=== PATIENT | female | born 1990 | race African-American/Black ===

== ENCOUNTER 2017-10-19 04:29 | Inpatient (IN) | payer OTHER ==
[~2017-10-19] VITALS: Ht 165.1 cm; Wt 60.8 kg
[~2017-10-19 04:29] MED LIST: BENADRYL25 MG PO; DESITIN DIAPER28 GM TOP; DOCUSATE SODIU100 M3 PO; FOLIC ACID1 M1 PO; HYDROMORPHONE HC2 M1 PO; ITCH RELIEF CRE28 GM TOP; LUBRIDERM DAIL177 ML TOP; LYRICA50 M1 PO; LYRICA75 M1 PO; MELATONIN5 M7 PO; METHADONE HCL5 MG PO; MIRALAX119 GM PO; MULTIVITAMINS1 EAC9 PO; PERCOCET 5-3251 EACH PO; RISPERDAL0.5 M1 PO; RISPERDAL1 M1 PO; SENNA PLUS TAB1 EACH PO; TOPROL XL50 M1 PO; VANCOMYCIN1.25 GM/21 IV
--- NOTE | 2017-10-19 05:02 | ED GENERAL ADULT ---
History of Present Illness General Chief Complaint: General Adult Stated Complaint: FEVER, PER PT SICKLE CELL CRISIS Source: patient, family, old records Exam Limitations: no limitations Vital Signs & Intake/Output Vital Signs & Intake/Output Vital Signs Date Time Temp Pulse Resp B/P B/P Pulse O2 O2 Flow FiO2 Mean Ox Delivery Rate 10/19 0726 93 18 108/67 96 Room Air 10/19 0514 98 Room Air 10/19 0454 98.6 103 18 114/71 94 Room Air Allergies Coded Allergies: morphine (Severe, HIVES 10/19/17) peanut (Severe, HIVES 10/19/17) adhesive (Intermediate, RASH 10/19/17) iodine (Intermediate, SKIN BURNING 10/19/17) meperidine (From DEMEROL) (Intermediate, HIVES 10/19/17) potassium chloride (Intermediate, HIVES 10/19/17) shellfish derived (Intermediate, HIVES 10/19/17) Uncoded Allergies: FRUIT (VOMITING 08/16/17) Reconcile Medications Cod Liver Oil/Zinc Oxide (Desitin Diaper Rash 40% Paste) 40 % PASTE..G. 1 GENA TOP BID itch . diphenhydrAMINE HCl (Benadryl) 25 MG CAP 1 CAP PO Q8P PRN SKIN ITCHING . Diphenhydramine HCl/Zinc Acet (Itch Relief Cream) 2 %-0.1 % CREAM..G. 1 GENA TOP Q6PRN PRN ITCHING . Docusate Sodium 100 MG CAPSULE 100 MG PO DAILY NEEDED PRN CONSTIPATION . Emollient Combination No.92 (Lubriderm Daily Moisture) 177 ML LOTION 1 GENA TOP TID PRN DRY SKIN . Folic Acid 1 MG TABLET 1 TAB PO DAILY SUPPLEMENT (Reported) Melatonin 5 MG TABLET 10 MG PO AT BEDTIME insomnia . Metoprolol Succ XL (Toprol Xl) 50 MG TAB 1 TAB PO DAILY HEART (Reported) Multiple Vitamin (Multivitamins) 1 EACH TABLET 1 TAB PO DAILY VITAMIN ( Reported) Oxycodone HCl/Acetaminophen (Percocet 5-325 MG Tablet) 5 MG-325 MG TABLET 1 TAB PO TID PRN PAIN . Polyethylene Glycol 3350 (Miralax) 17 GRAM/DOSE POWDER 17 GM PO DAILY PRN CONSTIPATION . Pregabalin (Lyrica) 75 MG CAPSULE 150 MG PO BID SEIZURE . Risperidone (Risperdal) 0.5 MG TABLET 1 TAB PO QAM depression . Risperidone (Risperdal) 1 MG TABLET 1 TAB PO QPM depression . Sennosides/Docusate Sodium (Senna Plus Tablet) 8.6 MG-50 MG TABLET 2 TAB PO DAILY PRN CONSTIPATION . Triage Note: TRIAGE: PATIENT TO ER FROM HOME REPORTING "FEEL LIKE SICKLE CELL CRISIS X 3 DAYS." TEARFUL THROUGHOUT TRIAGE W/ FREQUENT MOANING. PATIENT REPORTS FEVER TONIGHT OF 99.5, AFEBRILE IN TRIAGE. Triage Nurses Notes Reviewed? yes : No Patient currently breastfeeds: No HPI: Patient presents to the emergency room complaining of diffuse body sickle cell pain that started 3 days following this portion. Unable to control the pain with her medications at home. She states that she isn't running a low-grade fever for 99.5. She denies any coughing. There is no nausea or vomiting. There is no dysuria. The pain is 10 out of 10. Pain is constant. There are no aggravating or mitigating factors. Past History Travel History Traveled to [place] past 21 day No Medical History Any Pertinent Medical History? 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 No Review of Systems Review of Systems Constitutional: Reports: see HPI, chills, fever. EENTM: Reports: no symptoms. Respiratory: Reports: no symptoms. Cardiovascular: Reports: no symptoms. GI: Reports: no symptoms. Genitourinary: Reports: no symptoms. Musculoskeletal: Reports: see HPI. Skin: Reports: no symptoms. Neurological/Psychological: Reports: no symptoms. Hematologic/Endocrine: Reports: no symptoms. Immunologic/Allergic: Reports: no symptoms. All Other Systems: Reviewed and Negative Physical Exam Physical Exam General Appearance: well developed/nourished, alert, awake, moderate distress Head: atraumatic, normal appearance Eyes: Bilateral: PERRL, EOMI. Ears, Nose, Throat: normal pharynx, normal ENT inspection, hearing grossly normal Neck: normal inspection, supple, full range of motion Respiratory: normal breath sounds, chest non-tender, no respiratory distress, lungs clear Cardiovascular: regular rate/rhythm, normal peripheral pulses Gastrointestinal: normal bowel sounds, soft, non-tender Back: normal inspection, normal range of motion Extremities: normal inspection, normal capillary refill, normal range of motion, no edema Neurologic/Psych: no motor/sensory deficits, awake, alert, oriented x 3, normal mood/affect Skin: intact, normal color, warm/dry Lymphatic: no anterior cervical edgar Core Measures ACS in differential dx? No CVA/TIA Diagnosis: No Sepsis Present: No Sepsis Focused Exam Completed? No Progress Differential Diagnoses I considered the following diagnoses in my evaluation of the patient: [Sickle crisis] Plan of Care: Orders Procedure Date/time Status Regular Diet 10/19 L Active ED Holding Orders 10/19 703 Active Admit to inpatient 10/19 703 Active Vital Signs 10/19 703 Active Code Status 10/19 703 Active URINALYSIS 10/19 458 Active RETICULOCYTE COUNT 10/19 458 Complete HUMAN BETA HCG SCREEN 10/19 458 Complete COMPREHENSIVE METABOLIC PANEL 10/19 458 Complete CBC WITHOUT DIFFERENTIAL 10/19 458 Complete Current Medications Sig/Dotty Start time Last Medication Dose Stop Time Status Admin Ondansetron HCl 4 MG ONCE ONE 10/19 744 AC 10/19 (Zofran) 10/19 0646 0739 Laboratory Tests 10/19/17 0517: Anion Gap 13, Estimated GFR > 60, BUN/Creatinine Ratio 25.0, Glucose 98, Calcium 9.6, Total Bilirubin 4.0 H, AST 88 H, ALT 26, Alkaline Phosphatase 88, Total Protein 9.1 H, Albumin 5.0, Globulin 4.1, Albumin/Globulin Ratio 1.2, Total Beta HCG NEGATIVE, CBC w Diff MAN DIFF ORDERED, RBC 2.64 L, MCV 89.7, MCH 30.0, RDW 20.5 H, MPV 9.5, Gran % 57.2, Lymphocytes % 27.3, Monocytes % 10.1 H, Eosinophils % 5.3 H, Basophils % 0.1, Absolute Granulocytes 8.6 H, Segmented Neutrophils 64, Absolute Lymphocytes 4.1 H, Lymphocytes 25, Monocytes 5, Absolute Monocytes 1.5 H, Eosinophils 4, Absolute Eosinophils 0.8, Basophils 1, Absolute Basophils 0, Nucleated RBCs 1 H, Platelet Estimate ADEQUATE, Polychromasia 2+, Poikilocytosis 3+, Basophilic Stippling SLIGHT, Ovalocytes 1+, Prasanna Cells FEW, Elliptocytes 1+, Schistocytes FEW, PUBS MCHC 33.5, Retic Count 12.9 H, Fld Total RBCs Counted 100 Initial ED EKG: none Departure Departure Disposition: STILL A PATIENT Condition: Stable Clinical Impression Primary Impression: Sickle cell anemia Referrals: Patient Has No Primary Care Dr (PCP/Family) Departure Forms: Customer Survey General Discharge Information Admission Note Spoke With: Deidra Bravo MD Documentation of Exam: Documentation of any treatments & extenuating circumstances including Concerns Regarding Discharge (functional status, medication knowledge or non-compliance, living conditions, etc.) that warrant an admission rather than observation: [IV FLUIDS, IV PAIN CONTROL, HEME CONSULT] Critical Care Note Critical Care Note Critical Care Time: non-applicable
[2017-10-19 05:34] LABS: ABSOLUTE BASOPHIL COUNT 0 /CUMM (0.0-0.2); ABSOLUTE EOSINOPHIL COUNT 0.8 /CUMM (0.0-0.7); ABSOLUTE GRANULOCYTE CT 8.6 /CUMM (1.4-6.5); ABSOLUTE LYMPH COUNT 4.1 /CUMM (1.2-3.4); ABSOLUTE MONOCYTE COUNT 1.5 /CUMM (0.10-0.60); BASOPHIL % 0.1 % (0.0-2.0); EOSINOPHIL % 5.3 % (0-5); GRANULOCYTE % 57.2 % (42.2-75.2); HEMATOCRIT 23.7 % (37-47); MEAN CORPUSCULAR HGB CONC 33.5 G/DL (33.0-37.0); MEAN CORPUSCULAR VOLUME 89.7 FL (81.0-99.0); MEAN PLATELET VOLUME 9.5 FL (7.4-10.4); PLATELET COUNT 319 /CUMM (130-400); RBC DISTRIBUTION WIDTH 20.5 % (11.5-14.5); RED BLOOD CELL CT 2.64 /CUMM (4.20-5.40); WHITE BLOOD CELL COUNT 15.1 /CUMM (4.8-10.8)
--- NOTE | 2017-10-19 11:01 | RADIOLOGY REPORT ---
EXAMINATION: XR LUMBOSACRAL SPINE CLINICAL INFORMATION: Sickle cell crisis. Pain predominantly in back and vertebrae. COMPARISON: CT scan of the abdomen and pelvis 09/13/2017. MRI scan 09/11/2017. TECHNIQUE: AP and lateral views of the lumbosacral spine were obtained. FINDINGS: There is mild levoscoliosis. Bone mineralization is diffusely decreased. The study redemonstrates central depression of the superior and inferior endplates of the vertebrae in the lower thoracic and in the mid and upper lumbar spine, consistent with sequelae of sickle cell disease. There are no acute compression fractures. There are no acute compression fractures. The paravertebral structures are unremarkable. The sacroiliac joints are intact. The bowel gas pattern is nonspecific. IMPRESSION: 1. The study demonstrates central depression of multiple vertebrae and low bone mineralization, consistent sequelae of sickle cell disease. 2. There are no acute fractures or subluxations.
--- NOTE | 2017-10-19 11:35 | History & Physical ---
Juan Alberto BALDERAS,Samuel 10/19/17 0849: General Information and HPI MD Statement: I have seen and personally examined MIRIAN OBREGON and documented this H&P. The patient is a 27 year old F who presented with a patient stated chief complaint of [sickle cell crisis]. Source of Information: patient, old records Exam Limitations: no limitations History of Present Illness: This is a 26-year-old female with reported history of CHF, CVA X2 (last one in 2014) seizure disorder, Hep C w/o dx of cirrhosis, bipolar disorder and sickle cell crises who comes in with CC of back pain. Pt states that pain has been severe for the past few days but she states that her symptoms started about 1.5 weeks ago. She describes pain as 10/10, burning sensation that is in her spine and r.sided flank and it radites down her buttocks to both lower extremeties. Additionally, she is experiencing severe pruritis that is associated with pain medication. Pt states that the cold weather makes her symptoms worse. She has hx of exchange transfusions and trt with hydroxyurea but is not on either at this time. She was seen at [place] 09/2017 for crisis and was found to also have MRSA bacteremia 2/2 to port. During time of DC she was told to F/U with Dr.John Em at the [facility], but pt was unable to make her appointment. She denies IVDA, and recent EtOH but does did smoke marijuana yesterday. She endorses headache, nausea, severe pruritis, back pain, generalized abdominal pain but denies chest pain, or SOB. Allergies/Medications Allergies: Coded Allergies: morphine (Severe, HIVES 10/19/17) peanut (Severe, HIVES 10/19/17) adhesive (Intermediate, RASH 10/19/17) iodine (Intermediate, SKIN BURNING 10/19/17) meperidine (From DEMEROL) (Intermediate, HIVES 10/19/17) potassium chloride (Intermediate, HIVES 10/19/17) shellfish derived (Intermediate, HIVES 10/19/17) Uncoded Allergies: FRUIT (VOMITING 08/16/17) Home Med list Cod Liver Oil/Zinc Oxide (Desitin Diaper Rash 40% Paste) 40 % PASTE..G. 1 GENA TOP BID itch . diphenhydrAMINE HCl (Benadryl) 25 MG CAP 1 CAP PO Q8P PRN SKIN ITCHING . Diphenhydramine HCl/Zinc Acet (Itch Relief Cream) 2 %-0.1 % CREAM..G. 1 GENA TOP Q6PRN PRN ITCHING . Docusate Sodium 100 MG CAPSULE 100 MG PO DAILY NEEDED PRN CONSTIPATION . Emollient Combination No.92 (Lubriderm Daily Moisture) 177 ML LOTION 1 GENA TOP TID PRN DRY SKIN . Folic Acid 1 MG TABLET 1 TAB PO DAILY SUPPLEMENT (Reported) Melatonin 5 MG TABLET 10 MG PO AT BEDTIME insomnia . Metoprolol Succ XL (Toprol Xl) 50 MG TAB 1 TAB PO DAILY HEART (Reported) Multiple Vitamin (Multivitamins) 1 EACH TABLET 1 TAB PO DAILY VITAMIN ( Reported) Oxycodone HCl/Acetaminophen (Percocet 5-325 MG Tablet) 5 MG-325 MG TABLET 1 TAB PO TID PRN PAIN . Polyethylene Glycol 3350 (Miralax) 17 GRAM/DOSE POWDER 17 GM PO DAILY PRN CONSTIPATION . Pregabalin (Lyrica) 75 MG CAPSULE 150 MG PO BID SEIZURE . Risperidone (Risperdal) 0.5 MG TABLET 1 TAB PO QAM depression . Risperidone (Risperdal) 1 MG TABLET 1 TAB PO QPM depression . Sennosides/Docusate Sodium (Senna Plus Tablet) 8.6 MG-50 MG TABLET 2 TAB PO DAILY PRN CONSTIPATION . 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 Ambulation: independent Review of Systems Review of Systems Constitutional: Reports: no symptoms. Exam & Diagnostic Data Last 24 Hrs of Vital Signs/I&O Vital Signs Date Time Temp Pulse Resp B/P B/P Pulse O2 O2 Flow FiO2 Mean Ox Delivery Rate 10/19 946 85 18 106/66 10/19 0726 93 18 108/67 96 Room Air 10/19 0514 98 Room Air 10/19 0454 98.6 103 18 114/71 94 Room Air Intake & Output 10/19 1600 10/19 0800 10/19 0000 Intake Total Output Total Balance Patient 60.781 kg Weight Weight Reported by Patient Measurement Method Physical Exam General Appearance Alert, Oriented X3, Cooperative, Moderate Distress Skin excorications in abd and arms and legs HEENT Atraumatic, PERRLA, EOMI, Mucous Membr. moist/pink Neck Supple Cardiovascular tachycardic, soft 2/6 RUSB systolic murmur Lungs Clear to Auscultation, Normal Air Movement Abdomen Soft, No Masses Neurological Normal Speech Last 24 Hrs of Labs/Lamin: Laboratory Tests 10/19/17 1008: Urine Color YEL, Urine Clarity HAZY H, Urine pH 6.0, Ur Specific Mozier 1.020, Urine Protein NEG, Urine Ketones NEG, Urine Nitrite NEG, Urine Bilirubin POS@ ICTO H, Urine Urobilinogen 0.2, Ur Leukocyte Esterase SMALL H, Ur Microscopic SEDIMENT EXAMINED, Urine RBC RARE, Urine WBC 1-3 H, Ur Epithelial Cells FEW, Urine Bacteria MOD H, Micro UA Comment , Urine Hemoglobin TRACE-INTACT, Urine Glucose NEG 10/19/17 0517: Anion Gap 13, Estimated GFR > 60, BUN/Creatinine Ratio 25.0, Glucose 98, Calcium 9.6, Total Bilirubin 4.0 H, AST 88 H, ALT 26, Alkaline Phosphatase 88, Total Protein 9.1 H, Albumin 5.0, Globulin 4.1, Albumin/Globulin Ratio 1.2, Total Beta HCG NEGATIVE, D-Dimer High Sensitivty 1996 H, CBC w Diff MAN DIFF ORDERED, RBC 2.64 L, MCV 89.7, MCH 30.0, RDW 20.5 H, MPV 9.5, Gran % 57.2, Lymphocytes % 27.3, Monocytes % 10.1 H, Eosinophils % 5.3 H, Basophils % 0.1, Absolute Granulocytes 8.6 H, Segmented Neutrophils 64, Absolute Lymphocytes 4.1 H, Lymphocytes 25, Monocytes 5, Absolute Monocytes 1.5 H, Eosinophils 4, Absolute Eosinophils 0.8, Basophils 1, Absolute Basophils 0, Nucleated RBCs 1 H, Platelet Estimate ADEQUATE, Polychromasia 2+, Poikilocytosis 3+, Basophilic Stippling SLIGHT, Ovalocytes 1+, [place] Cells FEW, Elliptocytes 1+, Schistocytes FEW, PUBS MCHC 33.5, Retic Count 12.9 H, Fld Total RBCs Counted 100 Microbiology 10/19 1008 URINE ROUT: Urine Culture - RECD Assessment/Plan Assessment: This is a 26-year-old female with reported history of CHF, CVA X2 (last one in 2014) seizure disorder, Hep C w/o dx of cirrhosis, bipolar disorder and sickle cell crises who comes in with CC of back pain and sickle cell crisis. ED work up shows: Vitals: 98.6, 103, 18, 114/77, 94% CBC: wbc 15.1, HB 7.9, HCT 23.7, PLT 319. Retic 12.9 T. OLAF 4.0, ast 88, alt 26, ALKP 88, Negative HCG Anemia and back pain likely due to sickle cell crisis: Pt had prolonged admission to 09/2017 for similar complaint and found to have MRSA bacteremia. She denies any chest pain or SOB at this time. Pt has complex course of Sickle Cell disease as she has hx of chronic exchange transfusion, likely iron-load contributing to heart failure, and previous trt with Hydroxyurea. Currently not following with heme/onc specialist or Sickle cell specialist. In Sep she left with Hb 7.4 today at 7.9. Retic count 12.9 and T. olaf 4.0. * IVF-no 1/2 NS in hospital so giving NS at 75cc * O2 * Analgesia with Percocet and IV dilaudid * Benadryl PO 50mg q6 for pruritis * EKG * Spine xray * Folic acid * Multivitamin * Type and cross * Will hold off transfusion at this time as she seems to be around her baseline * Monitor LDH/BILI/RETIC * Heme/onc consult * Though anemic will con't pharmacologic ppx given her hypercoag state Leukocytosis: Unsure if this is reactive or not. Pt did seem to have some r.sided flank pain but no dysuria. During previous hospitalization she had MRSA bacteremia which was treated. Also had enlarged LN which was treated with Doxy. No obvious source of infection at this time. * Monitor cbc * UA * UC * hold off abx at this time Seizures: * Continue Lyrica 150mg BID CHF: * Con't Toprol XL 50mg Bipolar: * Con't Risperdal per home dosing Transamanitis: She does have mild AST elevation of 88 but nml ALT 26. Alk phos 88. During previous admission she was eval for possible gallbladder etiology of elevation of LFT and did have delayed HIDA. At that time thought to be 2/2 narcotics or chronic cholecystitis. Note pt also has hx of Hep C. * Monitor LFT * Consider US RUQ if enzymes elevate or pt has RUQ pain. FC Heart healthy diet Chem dvt ppx As Ranked By This Provider Problem List: 1. Anemia 2. Sickle cell crisis 3. 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
[2017-10-19 14:42] VITALS: BP 126/80
[2017-10-19 22:20] VITALS: BP 100/60
[2017-10-20 06:26] VITALS: BP 106/64
--- NOTE | 2017-10-20 07:37 | Cons- Hematology ---
General Information and HPI Consulting Request Date of Consult: 10/20/17 Requested By: Deidra Bravo MD Reason for Consult: sickle cell crisis Source of Information: patient, old records Exam Limitations: no limitations History of Present Illness: Ms. Rooney is a 27-year-old female with reported history of CHF, CVA (last in 2014), seizure disorder, bipolar disorder, hepatitis C, and sickle cell disease who presents with a few weeks history of back pain which has progressed to generalized pain. Pain has been worse with the cold weather. She states she has been trying to deal with it at home. She reports some low grade fever. She has some mild shortness of breath with exertion. She denies any coughing. She has some diarrhea. She denies any urinary issue. She states there was pus coming out of her left chest port incision area at one time. It is resolved now. She was to follow up with Dr. Em at [facility] but was never able to make it. She got sick when the appointment came up again. Allergies/Medications Allergies: Coded Allergies: morphine (Severe, HIVES 10/19/17) peanut (Severe, HIVES 10/19/17) adhesive (Intermediate, RASH 10/19/17) iodine (Intermediate, SKIN BURNING 10/19/17) meperidine (From DEMEROL) (Intermediate, HIVES 10/19/17) potassium chloride (Intermediate, HIVES 10/19/17) shellfish derived (Intermediate, HIVES 10/19/17) Uncoded Allergies: FRUIT (VOMITING 08/16/17) Home Med List: Cod Liver Oil/Zinc Oxide (Desitin Diaper Rash 40% Paste) 40 % PASTE..G. 1 GENA TOP BID itch . diphenhydrAMINE HCl (Benadryl) 25 MG CAP 1 CAP PO Q8P PRN SKIN ITCHING . Diphenhydramine HCl/Zinc Acet (Itch Relief Cream) 2 %-0.1 % CREAM..G. 1 GENA TOP Q6PRN PRN ITCHING . Docusate Sodium 100 MG CAPSULE 100 MG PO DAILY NEEDED PRN CONSTIPATION . Emollient Combination No.92 (Lubriderm Daily Moisture) 177 ML LOTION 1 GENA TOP TID PRN DRY SKIN . Folic Acid 1 MG TABLET 1 TAB PO DAILY SUPPLEMENT (Reported) Melatonin 5 MG TABLET 10 MG PO AT BEDTIME insomnia . Metoprolol Succ XL (Toprol Xl) 50 MG TAB 1 TAB PO DAILY HEART (Reported) Multiple Vitamin (Multivitamins) 1 EACH TABLET 1 TAB PO DAILY VITAMIN ( Reported) Oxycodone HCl/Acetaminophen (Percocet 5-325 MG Tablet) 5 MG-325 MG TABLET 1 TAB PO TID PRN PAIN . Polyethylene Glycol 3350 (Miralax) 17 GRAM/DOSE POWDER 17 GM PO DAILY PRN CONSTIPATION . Pregabalin (Lyrica) 75 MG CAPSULE 150 MG PO BID SEIZURE . Risperidone (Risperdal) 0.5 MG TABLET 1 TAB PO QAM depression . Risperidone (Risperdal) 1 MG TABLET 1 TAB PO QPM depression . Sennosides/Docusate Sodium (Senna Plus Tablet) 8.6 MG-50 MG TABLET 2 TAB PO DAILY PRN CONSTIPATION . Current Medications: Current Medications Sig/Dotty Start time Last Medication Dose Route Stop Time Status Admin Acetaminophen 650 MG Q6P PRN 10/19 944 AC PO Diphenhydramine HCl 50 MG .STK-MED ONE 10/19 1758 DC PO 10/19 1759 Diphenhydramine HCl 0 .STK-MED ONE 10/19 1158 DC PO Diphenhydramine HCl See Dose Q12 10/19 1000 AC 10/19 Insts (1) TOP 2257 Diphenhydramine HCl 50 MG Q6P PRN 10/19 944 AC 10/20 PO 0122 Diphenhydramine HCl 0 .STK-MED ONE 10/19 0720 DC .ROUTE Enoxaparin Sodium 40 MG DAILY 10/19 1000 AC 10/19 SC 0951 Folic Acid 1 MG DAILY 10/19 1000 AC 10/19 PO 0944 Folic Acid 0 .STK-MED ONE 10/19 0859 DC PO Hydromorphone HCl 1 MG ONCE ONE 10/19 1999 DC 10/19 IV 10/19 Hydromorphone HCl 0 .STK-MED ONE 10/19 951 DC .ROUTE Hydromorphone HCl 1 MG Q6P PRN 10/19 0845 AC 10/20 IV 012 Hydromorphone HCl 0 .STK-MED ONE 10/19 720 DC .ROUTE Melatonin 10 MG AT BEDTIME 10/190 AC 10/19 PO 2013 Metoprolol Succinate 50 MG DAILY 10/19 1000 AC 10/19 PO 0947 Multivitamins 1 TAB DAILY 10/19 1000 AC 10/19 Therapeutic PO 0946 Ondansetron HCl 0 .STK-MED ONE 10/19 1158 DC .ROUTE Ondansetron HCl 4 MG Q6P PRN 10/19 0845 AC 10/19 IV 1158 Ondansetron HCl 4 MG ONCE ONE 10/19 0745 DC 10/19 IV 10/19 0746 0739 Ondansetron HCl 0 .STK-MED ONE 10/19 0739 DC .ROUTE Oxycodone/ 1 TAB Q6P PRN 10/19 0845 AC 10/20 Acetaminophen PO 0402 Polyethylene Glycol 17 GM DAILY NEEDED PRN 10/19 0830 AC PO Pregabalin 150 MG BID 10/19 1000 AC 10/19 PO 2014 Pregabalin 0 .STK-MED ONE 10/19 0945 DC PO Risperidone 1 MG QPM 10/19 2200 AC 10/19 PO 2013 Risperidone 0.5 MG QAM 10/19 1000 AC 10/19 PO 0945 Senna/Docusate Sodium 2 TAB DAILY NEEDED PRN 10/19 0730 AC PO Sodium Chloride 1,000 ML Q13H 10/19 1000 AC 10/20 IV 10/20 1159 0358 Tetanus/Diphtheria 0 .STK-MED ONE 10/19 1439 DC Toxoids Adsorbed IM Dose Instructions: (1)Diphenhydramine HCl: APPLY Review of Systems Review of Systems Constitutional: Reports: fever. Denies: chills, malaise, weakness, unexplained weight loss. Cardiovascular: Reports: chest pain, palpitations. Denies: edema, peripheral edema. Respiratory: Reports: short of breath. Denies: cough. GI: Reports: abdominal pain, diarrhea, nausea. Denies: bloody stool, vomiting. Genitourinary: Denies: discharge, dysuria, frequency, hematuria, pain. Musculoskeletal: Reports: back pain, joint pain, muscle pain, neck pain. Skin: Reports: dryness, lumps (left chest port area). Neurological/Psychological: Reports: anxiety, depressed. Hematologic/Endocrine: Denies: bleeding. 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 Ambulation: independent Exam & Diagnostic Data Vital Signs and I&O Vital Signs Date Time Temp Pulse Resp B/P B/P Pulse O2 O2 Flow FiO2 Mean Ox Delivery Rate 10/20 06 99.2 101 20 106/64 92 Room Air 10/19 2220 99.2 94 18 100/60 100 10/19 1442 98.1 79 18 126/80 100 Room Air 10/19 1329 80 18 100/58 97 Room Air 10/19 0947 85 18 106/66 10/19 0726 93 18 108/67 96 Room Air Intake & Output 10/20 0800 10/20 0000 10/19 1600 Intake Total 840 565 Output Total 1000 240 Balance -160 325 Intake, IV 600 225 Intake, Oral 240 340 Output, Urine 1000 240 Patient 60.781 kg Weight Weight Reported by Patient Measurement Method Physical Exam General Appearance: no apparent distress, alert, awake, anxious, comfortable, thin Head: atraumatic Eyes: Bilateral: PERRL, EOMI. Ears, Nose, Throat: normal pharynx, moist mucus membranes Neck: supple Respiratory: chest non-tender, no respiratory distress, quiet respiration Cardiovascular: tachycardia Gastrointestinal: normal bowel sounds, soft, non-tender Extremities: no edema Neurologic/Psych: awake, alert, oriented x 3 Skin: normal color, warm/dry, left anterior chest port incision with firmness and nontender Lymphatic: no anterior cervical edgar Last 48 Hours of Lab Results: Laboratory Tests 10/19 10/19 1008 0517 Chemistry Sodium (137 - 145 mmol/L) 141 Potassium (3.5 - 5.1 mmol/L) 5.0 Chloride (98 - 107 mmol/L) 107 Carbon Dioxide (22 - 30 mmol/L) 21 L Anion Gap (5 - 16) 13 BUN (7 - 17 mg/dL) 10 Creatinine (0.5 - 1.0 mg/dL) 0.4 L Estimated GFR (>60 ml/min) > 60 BUN/Creatinine Ratio (7 - 25 %) 25.0 Glucose (65 - 99 mg/dL) 98 Calcium (8.4 - 10.2 mg/dL) 9.6 Total Bilirubin (0.2 - 1.3 mg/dL) 4.0 H AST (14 - 36 U/L) 88 H ALT (9 - 52 U/L) 26 Alkaline Phosphatase (<127 U/L) 88 Total Protein (6.3 - 8.2 g/dL) 9.1 H Albumin (3.5 - 5.0 g/dL) 5.0 Globulin (1.9 - 4.2 gm/dL) 4.1 Albumin/Globulin Ratio (1.1 - 2.2 %) 1.2 Total Beta HCG (NEGATIVE) NEGATIVE Coagulation D-Dimer High Sensitivty (0 - 243 ng/ml) 1996 H Hematology CBC w Diff MAN DIFF ORDERED WBC (4.8 - 10.8 /CUMM) 15.1 H RBC (4.20 - 5.40 /CUMM) 2.64 L Hgb (12.0 - 16.0 G/DL) 7.9 L Hct (37 - 47 %) 23.7 L MCV (81.0 - 99.0 FL) 89.7 MCH (27.0 - 31.0 PG) 30.0 RDW (11.5 - 14.5 %) 20.5 H Plt Count (130 - 400 /CUMM) 319 MPV (7.4 - 10.4 FL) 9.5 Gran % (42.2 - 75.2 %) 57.2 Lymphocytes % (20.5 - 51.1 %) 27.3 Monocytes % (1.7 - 9.3 %) 10.1 H Eosinophils % (0 - 5 %) 5.3 H Basophils % (0.0 - 2.0 %) 0.1 Absolute Granulocytes (1.4 - 6.5 /CUMM) 8.6 H Segmented Neutrophils (42.2 - 75.2 %) 64 Absolute Lymphocytes (1.2 - 3.4 /CUMM) 4.1 H Lymphocytes (20.5 - 51.1 %) 25 Monocytes (1.7 - 9.3 %) 5 Absolute Monocytes (0.10 - 0.60 /CUMM) 1.5 H Eosinophils (0 - 5.0 %) 4 Absolute Eosinophils (0.0 - 0.7 /CUMM) 0.8 Basophils (0.0 - 2.0 %) 1 Absolute Basophils (0.0 - 0.2 /CUMM) 0 Nucleated RBCs (0.0 - 0.0 /100WBC) 1 H Platelet Estimate (ADEQUATE) ADEQUATE Polychromasia 2+ Poikilocytosis 3+ Basophilic Stippling SLIGHT Ovalocytes 1+ Berwind Cells FEW Elliptocytes 1+ Schistocytes FEW PUBS MCHC (33.0 - 37.0 G/DL) 33.5 Retic Count (0.5 - 2.0 %) 12.9 H Other Body Source Fld Total RBCs Counted (%) 100 Urines Urine Color (YEL,AMB,STR) YEL Urine Clarity (CLEAR) HAZY H Urine pH (5.0 - 8.0) 6.0 Ur Specific [place] (1.001 - 1.035) 1.020 Urine Protein (NEG,<30 MG/DL) NEG Urine Ketones (NEG) NEG Urine Nitrite (NEG) NEG Urine Bilirubin (NEG) POS@ICTO H Urine Urobilinogen (0.1 - 1.0 EU/dl) 0.2 Ur Leukocyte Esterase (NEG) SMALL H Ur Microscopic SEDIMENT EXAMINED Urine RBC (0 - 5 /HPF) RARE Urine WBC (0 - 2 /HPF) 1-3 H Ur Epithelial Cells (NONE,FEW) FEW Urine Bacteria (NEG/NONE) MOD H Micro UA Comment Urine Hemoglobin (NEG) TRACE-INTACT Urine Glucose (N MG/DL) NEG Imaging/Other Studies: X-ray lumbar 10/19/2016 1. The study demonstrates central depression of multiple vertebrae and low bone mineralization, consistent sequelae of sickle cell disease. 2. There are no acute fractures or subluxations. Assessment/Plan Assessment: Ms. Rooney is a 27-year-old female with sickle cell disease complicated by CHF and CVA, bipolar disorder, hepatitis C infection, and seizure disorder who presented with generalized pain concerning for sickle cell crisis. On presentation, her hemoglobin and hematocrit were 7.9 and 23.7 respectively. These are at baseline. Her WBC was elevated at 15.1 but improved from previous. Her reticulocyte count was elevated at 12.9. Bilirubin was elevated at 4.0. These suggest on going sickle cell crisis. She should be managed symptomatically with hydration and pain control. Infection should be ruled out. Her urine did show some moderate bacteria. Urine culture is pending. She has no significant respiratory issue. She is saturating at 100% on room air at times. The chest port incision area looks well healed and without signs or symptoms of infection at the moment. Recommendations: Sickle cell crisis: -Continue IVF -Pain management as per primary -Incentive spirometry -Folic acid daily -Limit transfusion, consider transfusion if hgb <6.5 (below baseline) -Transfusion if symptomatic -Monitor CBC, LFT, LDH, Retic count -DVT prophylaxis -supplemental oxygen as needed -Need to follow up as outpatient with the [facility] (Dr. 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 Sickle cell anemia 2. Sickle cell crisis Other Findings/Comments: Please call [phone] with any questions or concerns. Consult Acknowledgment - Thank you for your consult request.
--- NOTE | 2017-10-20 08:18 | Patient Discharge Instructions ---
Discharge Instructions General Discharge Information You were seen/treated for: #Sickle Cell crisis Special Instructions: - Please follow up with the [facility] (Dr. Em) to consider superintendent terminal management: hydroxyurea and exchange transfusion. - Please follow up with your primary care physician within 1-2 week of discharge. Inform your primary care physician of this admission to [facility]. - Continue your current medications per discharge instructions. - Please watch for these problems: Fever, Chills, Nausea, Vomiting, Shortness of Breath, Productive Cough, Chest Pain/Discomfort, Abdominal Pain, Active Bleeding or Bloody urine/stool. Diet Continue normal diet: Yes Recommended Diet: Heart Healthy Activity Full Activity/No Limits: Yes Activity Self Limited: No Acute Coronary Syndrome Inclusion Criteria At DC or during hospital stay patient has or had the following: ACS DIAGNOSIS No Discharge Core Measures Meds if any: Prescribed or Continued at Discharge Meds if any: NOT Prescribed or Continued at Discharge Congestive Heart Failure Inclusion Criteria At DC or during hospital stay patient has or had the following: CHF DIAGNOSIS No Discharge Core Measures Meds if any: Prescribed or Continued at Discharge Meds if any: NOT Prescribed or Continued at Discharge Cerebrovascular accident Inclusion Criteria At DC or during hospital stay patient has or had the following: CVA/TIA Diagnosis No Discharge Core Measures Meds if any: Prescribed or Continued at Discharge Meds if any: NOT Prescribed or Continued at Discharge Venous thromboembolism Inclusion Criteria VTE Diagnosis No VTE Type NONE VTE Confirmed by (Test) NONE Discharge Core Measures - Per Current guidelines, there needs to be overlap - treatment for the first 5 days of Warfarin therapy. - If discharged on Warfarin prior to 5 days of - overlap therapy, the patient will need to be - assessed for post discharge needs including - *Post discharge parental anticoagulation - *Warfarin and/or parental anticoagulation education - *Follow up date to check INR post discharge At least 5 days overlap therapy as Inpatient No Meds if any: Prescribed or Continued at Discharge Note: Overlap Therapy is Warfarin and Anticoagulant Meds if any: NOT Prescribed or Continued at Discharge
--- NOTE | 2017-10-20 08:26 | PN- Housestaff ---
Livia Graham Nabeel Prosper 10/20/17 0819: Subjective Follow-up For: Sickle cell crisis Subjective: No overnight event. Patient was crying and requesting pain meds. Review of Systems Constitutional: Reports: see HPI. Objective Last 24 Hrs of Vital Signs/I&O Vital Signs Date Time Temp Pulse Resp B/P B/P Pulse O2 O2 Flow FiO2 Mean Ox Delivery Rate 10/20 0626 99.2 101 20 106/64 92 Room Air 10/19 2220 99.2 94 18 100/60 100 10/19 1442 98.1 79 18 126/80 100 Room Air 10/19 1329 80 18 100/58 97 Room Air 10/19 0947 85 18 106/66 Intake & Output 10/20 1600 10/20 0800 10/20 0000 Intake Total 840 565 Output Total 1000 240 Balance -160 325 Intake, IV 600 225 Intake, Oral 240 340 Output, Urine 1000 240 Physical Exam General Appearance: Alert, Oriented X3, Cooperative, Crying because of pain Current Medications: Current Medications Sig/Dotty Start time Last Medication Dose Route Stop Time Status Admin Acetaminophen 650 MG Q6P PRN 10/19 944 AC PO Diphenhydramine HCl 50 MG .STK-MED ONE 10/19 1758 DC PO 10/19 1759 Diphenhydramine HCl 0 .STK-MED ONE 10/19 1158 DC PO Diphenhydramine HCl See Dose Q12 10/19 1000 AC 10/19 Insts (1) TOP 2257 Diphenhydramine HCl 50 MG Q6P PRN 10/19 0845 AC 10/20 PO 0821 Enoxaparin Sodium 40 MG DAILY 10/19 1000 AC 10/19 SC 0951 Folic Acid 1 MG DAILY 10/19 1000 AC 10/19 PO 0944 Folic Acid 0 .STK-MED ONE 10/19 0859 DC PO Hydromorphone HCl 1 MG ONCE ONE 10/19 1999 DC 10/19 IV 10/19 Hydromorphone HCl 0 .STK-MED ONE 10/19 951 DC .ROUTE Hydromorphone HCl 1 MG Q6P PRN 10/19 0845 AC 10/20 IV 0739 Melatonin 10 MG AT BEDTIME 10/19 2200 AC 10/19 PO 2013 Metoprolol Succinate 50 MG DAILY 10/19 1000 AC 10/19 PO 0947 Multivitamins 1 TAB DAILY 10/19 1000 AC 10/19 Therapeutic PO 0946 Ondansetron HCl 0 .STK-MED ONE 10/19 1158 DC .ROUTE Ondansetron HCl 4 MG Q6P PRN 10/19 944 AC 10/19 IV 1158 Oxycodone/ 1 TAB Q6P PRN 10/19 944 AC 10/20 Acetaminophen PO 0402 Polyethylene Glycol 17 GM DAILY NEEDED PRN 10/19 829 AC PO Pregabalin 150 MG BID 10/19 999 AC 10/19 PO 2013 Pregabalin 0 .STK-MED ONE 10/19 0845 DC PO Risperidone 1 MG QPM 10/19 2200 AC 10/19 PO 2012 Risperidone 0.5 MG QAM 10/19 999 AC 10/19 PO 944 Senna/Docusate Sodium 2 TAB DAILY NEEDED PRN 10/19 829 AC PO Sodium Chloride 1,000 ML Q13H 10/19 999 AC 10/20 IV 10/20 1159 0358 Tetanus/Diphtheria 0 .STK-MED ONE 10/19 1439 DC Toxoids Adsorbed IM Dose Instructions: (1)Diphenhydramine HCl: APPLY Last 24 Hrs of Lab/Lamin Results Last 24 Hrs of Labs/Mics: Laboratory Tests 10/19/17 1008: Urine Color YEL, Urine Clarity HAZY H, Urine pH 6.0, Ur Specific [place] 1.020, Urine Protein NEG, Urine Ketones NEG, Urine Nitrite NEG, Urine Bilirubin POS@ ICTO H, Urine Urobilinogen 0.2, Ur Leukocyte Esterase SMALL H, Ur Microscopic SEDIMENT EXAMINED, Urine RBC RARE, Urine WBC 1-3 H, Ur Epithelial Cells FEW, Urine Bacteria MOD H, Micro UA Comment , Urine Hemoglobin TRACE-INTACT, Urine Glucose NEG Microbiology 10/19 1008 URINE ROUT: Urine Culture - RECD Assessment/Plan Assessment: Ms. Rooney is a 26-year-old female with reported history of CHF, CVA X2 (last one in 2014) seizure disorder, Hep C w/o dx of cirrhosis, bipolar disorder and sickle cell crises who comes in with CC of back pain and sickle cell crisis. ED Course: Vitals: 98.6, 103, 18, 114/77, 94% CBC: wbc 15.1, HB 7.9, HCT 23.7, PLT 319. Retic 12.9 T. OLAF 4.0, ast 88, alt 26, ALKP 88, Negative HCG Anemia and back pain likely due to sickle cell crisis: Pt had prolonged admission to 09/2017 for similar complaint and found to have MRSA bacteremia. During this admission, patient denied chest pain/SOB. She denies any chest pain or SOB at this time. Pt had complex course of Sickle Cell disease. Patient had hx of chronic exchange transfusion, likely iron-load contributing to heart failure, and previous treatment with Hydroxyurea, however she was not currently following up with heme/onc specialist or Sickle cell specialist. Last CBC in 09/2017: Hb 7.4 today at 7.9. Retic count 12.9 and T. olaf 4.0. * Continue IVF-no 1/2 NS in hospital so giving NS at 75cc * O2 * Analgesia with Percocet and IV dilaudid * Benadryl PO 50mg q6 for pruritis * EKG showed NSR w/ no ST-T abnormalities for now. * Spine xray showed central depression of multiple vertebrae and low bone mineralization, consistent sequelae of sickle cell disease. No acute process. * Folic acid + multivitamin * Type and cross,transfuse if Hgb <6.5 * Monitor LDH/BILI/RETIC, * Heme/onc consult * Though anemic will con't pharmacologic ppx given her hypercoag state Leukocytosis: Unsure if this is reactive or not. Pt did seem to have some r.sided flank pain but no dysuria. During previous hospitalization she had MRSA bacteremia which was treated. Also had enlarged LN which was treated with Doxy. No obvious source of infection at this time. * Monitor cbc * UA * UC * hold off abx at this time Seizures: * Continue Lyrica 150mg BID CHF: * Con't Toprol XL 50mg Bipolar: * Con't Risperdal per home dosing Transamanitis: She does have mild AST elevation of 88 but nml ALT 26. Alk phos 88. During previous admission she was eval for possible gallbladder etiology of elevation of LFT and did have delayed HIDA. At that time thought to be 2/2 narcotics or chronic cholecystitis. Note pt also has hx of Hep C. * Monitor LFT * Consider US RUQ if enzymes elevate or pt has RUQ pain. FC Heart healthy diet Chem dvt ppx Problem List: 1. Sickle cell anemia Pain Ratin Pain Location: back Pain Goal: Pain 7 or less Pain Plan: see AP Tomorrow's Labs & Rationales: CBC/BEP Ines Webb 10/20/17 1045: Attending MD Review Statement Attending Statement Attending MD Statement: examined this patient, discuss w/resident/PA/MANAGER UNION, agreed w/resident/PA/MANAGER UNION, discussed with family, reviewed EMR data (avail), discussed with nursing, discussed with case mgmt, reviewed images, amended to note Attending Assessment/Plan: with sickle cell crisis and severe pain now c/o left upper quadrant pain and generalised weakness. Hematology consult noted. Patient transfusion if hb< 6.5. Obtain CT a/p r/o acute pathology. Patient recieving iv pain meds and IVF aggressive hydration. Monitor LDH/retics and follow clinical course.
[2017-10-20 09:25] LABS: ABSOLUTE BASOPHIL COUNT 0.1 /CUMM (0.0-0.2); ABSOLUTE EOSINOPHIL COUNT 0.8 /CUMM (0.0-0.7); MEAN CORPUSCULAR HGB 29.8 PG (27.0-31.0); WHITE BLOOD CELL COUNT 11.5 /CUMM (4.8-10.8)
[2017-10-20 09:52] LABS: ABSOLUTE GRANULOCYTE CT 5.4 /CUMM (1.4-6.5); ABSOLUTE LYMPH COUNT 4.4 /CUMM (1.2-3.4); ABSOLUTE MONOCYTE COUNT 0.9 /CUMM (0.10-0.60); BASOPHIL % 0.6 % (0.0-2.0); EOSINOPHIL % 6.9 % (0-5); GRANULOCYTE % 46.6 % (42.2-75.2); MEAN CORPUSCULAR VOLUME 87.6 FL (81.0-99.0); MEAN PLATELET VOLUME 9.2 FL (7.4-10.4); PLATELET COUNT 283 /CUMM (130-400); RBC DISTRIBUTION WIDTH 21.8 % (11.5-14.5); RED BLOOD CELL CT 2.23 /CUMM (4.20-5.40)
[2017-10-20 09:56] LABS: HEMATOCRIT 19.5 % (37-47)
--- NOTE | 2017-10-20 13:46 | CT SCAN REPORT ---
EXAMINATION: CT ABDOMEN AND PELVIS WITHOUT CONTRAST CLINICAL INFORMATION: Right-sided and left-sided upper abdominal pain with question of acute process. Sickle cell crisis. COMPARISON: 09/13/2017 TECHNIQUE: Multidetector volumetric imaging was performed from the superior aspect of the liver through the pubic symphysis. Sagittal and coronal reformatted images were obtained on the technologist's workstation. DLP: 221.27 mGy-cm. FINDINGS: LUNG BASES: Once again seen are changes of scarring or atelectasis at the lung bases which are unchanged. Previously detected tiny pericardial effusion has resolved. LIVER, GALLBLADDER, AND BILIARY TREE: The liver remains enlarged but no focal mass or bile duct dilatation is seen. A calcified gallstone is seen within the contracted gallbladder and appearances are unchanged. PANCREAS: Poorly visualized secondary to lack of IV and oral contrast media but no gross abnormality is seen. SPLEEN: Calcified and presumably infarcted, unchanged. ADRENAL GLANDS: Unremarkable. KIDNEYS AND URETERS: The kidneys are normal in size, shape, and attenuation. No hydronephrosis, hydroureter, or calculi seen. No perinephric stranding. BLADDER: Unremarkable. GASTROINTESTINAL TRACT: The small and large bowel are unremarkable. The appendix is unremarkable. ABDOMINAL WALL: No significant hernia is appreciated. LYMPH NODES: Normal. VASCULAR: Unremarkable. PELVIC VISCERA: It is difficult to image the uterus and ovaries secondary to lack of oral and IV contrast. OSSEOUS STRUCTURES: There is some sclerosis of the osseous structures along with multiple H-type vertebrae with concavity of both superior and inferior endplates consistent with sickle cell disease. Findings are unchanged when compared to prior study. IMPRESSION: A cause for the patient's abdominal pain is not seen. Incidental note made of resolution of pericardial effusion, hepatomegaly, cholelithiasis without evidence of cholecystitis, chronic calcified infarcted spleen and bony changes with H-type vertebrae in the spine.
[2017-10-20 14:01] VITALS: BP 140/94
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
[2017-10-20 21:25] VITALS: BP 153/75
[2017-10-21 06:50] VITALS: BP 138/76
--- NOTE | 2017-10-21 07:37 | PN- Hematology ---
Subjective Subjective: Pain is about the same. She reports no changes. She feels sleepy this morning. She denies any confusion. Review of Systems Constitutional: Denies: chills, fever. Cardiovascular: Reports: chest pain. Respiratory: Denies: short of breath. Gastrointestinal: Reports: abdominal pain. Genitourinary: Denies: dysuria. Musculoskeletal: Reports: back pain, joint pain, muscle pain, neck pain. Neurological/Psychological: Reports: headache. All Other Systems: Reviewed and Negative Objective Vital Signs and I&Os Vital Signs Date Time Temp Pulse Resp B/P B/P Pulse O2 O2 Flow FiO2 Mean Ox Delivery Rate 10/21 0650 99.5 96 20 138/76 93 10/21 0000 Nasal 1.0L Cannula 10/20 2125 99.4 95 20 153/75 94 10/20 1600 95 Nasal 1.0L Cannula 10/20 1429 Nasal 2.0L Cannula 10/20 1401 99.3 93 20 140/94 94 Nasal 2.0L Cannula 10/20 1028 106/64 Intake & Output 10/21 0800 10/21 0000 10/20 1600 10/20 0800 10/20 0000 10/19 1600 Intake Total 300 200 500 840 565 Output Total 1000 240 Balance 300 200 500 -160 325 Intake, IV 600 225 Intake, Oral 300 200 500 240 340 Output, Urine 1000 240 Patient 60.781 kg Weight Weight Reported by Patient Measurement Method Physical Exam General Appearance: no apparent distress, comfortable, thin Head: atraumatic Respiratory: chest non-tender, no respiratory distress, quiet respiration Cardiovascular: regular rate/rhythm Abdomen: normal bowel sounds, soft Extremities: no edema Neurologic/Psychiatric: oriented x 3, somnolent Current Medications: Current Medications Sig/Dotty Start time Last Medication Dose Route Stop Time Status Admin Acetaminophen 650 MG Q6P PRN 10/19 944 AC PO Diphenhydramine HCl 50 MG .STK-MED ONE 10/20 1603 DC PO 10/20 1604 Diphenhydramine HCl See Dose Q12 10/19 999 AC 10/20 Insts (1) TOP 2229 Diphenhydramine HCl 50 MG Q6P PRN 10/19 0845 AC 10/21 PO 0016 Enoxaparin Sodium 40 MG DAILY 10/19 999 AC 10/19 SC 0951 Folic Acid 1 MG DAILY 10/19 999 AC 10/20 PO 1027 Hydromorphone HCl 1 MG Q4P PRN 10/20 1000 AC 10/21 IV 0016 Hydromorphone HCl 1 MG Q6P PRN 10/19 944 DC 10/20 IV 0739 Melatonin 10 MG AT BEDTIME 10/19 2199 AC 10/20 PO 2228 Metoprolol Succinate 50 MG DAILY 10/19 999 AC 10/20 PO 1028 Multivitamins 1 TAB DAILY 10/19 999 AC 10/20 Therapeutic PO 1028 Ondansetron HCl 4 MG Q6P PRN 10/19 944 AC 10/21 IV 0029 Oxycodone/ 1 TAB Q6P PRN 10/19 944 AC 10/20 Acetaminophen PO 1813 Polyethylene Glycol 17 GM DAILY NEEDED PRN 10/19 829 AC PO Pregabalin 150 MG BID 10/19 999 AC 10/20 PO 2228 Risperidone 1 MG QPM 10/19 2199 AC 10/20 PO 2228 Risperidone 0.5 MG QAM 10/19 999 AC 10/20 PO 1028 Senna/Docusate Sodium 2 TAB DAILY NEEDED PRN 10/19 829 AC PO Dose Instructions: (1)Diphenhydramine HCl: APPLY Results Last 24 Hours of Lab Results: Laboratory Tests 10/20 0800 Chemistry Sodium (137 - 145 mmol/L) 142 Potassium (3.5 - 5.1 mmol/L) 4.3 Chloride (98 - 107 mmol/L) 107 Carbon Dioxide (22 - 30 mmol/L) 24 Anion Gap (5 - 16) 11 BUN (7 - 17 mg/dL) 7 Creatinine (0.5 - 1.0 mg/dL) 0.5 Estimated GFR (>60 ml/min) > 60 BUN/Creatinine Ratio (7 - 25 %) 14.0 Total Bilirubin (0.2 - 1.3 mg/dL) 2.5 H Direct Bilirubin (< 0.4 mg/dL) 0.6 H AST (14 - 36 U/L) 48 H ALT (9 - 52 U/L) 30 Alkaline Phosphatase (<127 U/L) 71 Total Protein (6.3 - 8.2 g/dL) 6.7 Albumin (3.5 - 5.0 g/dL) 3.6 Hematology CBC w Diff MAN DIFF ORDERED WBC (4.8 - 10.8 /CUMM) 11.5 H RBC (4.20 - 5.40 /CUMM) 2.23 L Hgb (12.0 - 16.0 G/DL) 6.6 *L Hct (37 - 47 %) 19.5 *L MCV (81.0 - 99.0 FL) 87.6 MCH (27.0 - 31.0 PG) 29.8 RDW (11.5 - 14.5 %) 21.8 H Plt Count (130 - 400 /CUMM) 283 MPV (7.4 - 10.4 FL) 9.2 Gran % (42.2 - 75.2 %) 46.6 Lymphocytes % (20.5 - 51.1 %) 37.7 Monocytes % (1.7 - 9.3 %) 8.2 Eosinophils % (0 - 5 %) 6.9 H Basophils % (0.0 - 2.0 %) 0.6 Absolute Granulocytes (1.4 - 6.5 /CUMM) 5.4 Segmented Neutrophils (42.2 - 75.2 %) 47 Band Neutrophils (0.0 - 5.0 %) 1 Absolute Lymphocytes (1.2 - 3.4 /CUMM) 4.4 H Lymphocytes (20.5 - 51.1 %) 37 Monocytes (1.7 - 9.3 %) 9 Absolute Monocytes (0.10 - 0.60 /CUMM) 0.9 H Eosinophils (0 - 5.0 %) 3 Absolute Eosinophils (0.0 - 0.7 /CUMM) 0.8 Basophils (0.0 - 2.0 %) 1 Absolute Basophils (0.0 - 0.2 /CUMM) 0.1 Metamyelocytes (0.0 - 1.0 %) 1 Myelocytes (0 - 0 %) 1 H Nucleated RBCs (0.0 - 0.0 /100WBC) 1 H Platelet Estimate (ADEQUATE) ADEQUATE Polychromasia 2+ Hypochromic-Microcytic 2+ Poikilocytosis 4+ Basophilic Stippling 1+ Anisocytosis 4+ Microcytic Cells 1+ Target Cells 1+ Ovalocytes 1+ Elliptocytes 1+ Schistocytes 1+ PUBS MCHC (33.0 - 37.0 G/DL) 34.0 Retic Count (0.5 - 2.0 %) 10.06 H Recent Imaging Studies: CT abdomen/pelvis 10/20/2017: LUNG BASES: Once again seen are changes of scarring or atelectasis at the lung bases which are unchanged. Previously detected tiny pericardial effusion has resolved. LIVER, GALLBLADDER, AND BILIARY TREE: The liver remains enlarged but no focal mass or bile duct dilatation is seen. A calcified gallstone is seen within the contracted gallbladder and appearances are unchanged. PANCREAS: Poorly visualized secondary to lack of IV and oral contrast media but no gross abnormality is seen. SPLEEN: Calcified and presumably infarcted, unchanged. ADRENAL GLANDS: Unremarkable. KIDNEYS AND URETERS: The kidneys are normal in size, shape, and attenuation. No hydronephrosis, hydroureter, or calculi seen. No perinephric stranding. BLADDER: Unremarkable. GASTROINTESTINAL TRACT: The small and large bowel are unremarkable. The appendix is unremarkable. ABDOMINAL WALL: No significant hernia is appreciated. LYMPH NODES: Normal. VASCULAR: Unremarkable. PELVIC VISCERA: It is difficult to image the uterus and ovaries secondary to lack of oral and IV contrast. OSSEOUS STRUCTURES: There is some sclerosis of the osseous structures along with multiple H-type vertebrae with concavity of both superior and inferior endplates consistent with sickle cell disease. Findings are unchanged when compared to prior study. Assessment/Plan Assessment/Recommendations: Ms. Rooney is a 27-year-old female with sickle cell disease complicated by CHF and CVA, bipolar disorder, hepatitis C infection, and seizure disorder who presented with generalized pain concerning for sickle cell crisis. On presentation, her hemoglobin and hematocrit were 7.9 and 23.7 respectively. H/H has decreased. Bilirubin and reticulocyte counts have improved. Pain is about the same. Culture for urine is negative to date. She will continue current supportive care as per primary team. She will need to follow up with the [facility] to discuss exchange transfusion and hydroxyurea. Recommendations: Sickle cell crisis: -Continue IVF -Continue Pain management as per primary -Encourage incentive spirometry usage -Continue folic acid daily -Limit transfusion, consider transfusion if hgb <6.5 (below baseline) -Transfusion if symptomatic -Monitor CBC, LFT, LDH, Retic count daily -DVT prophylaxis -supplemental oxygen as needed -Outpatient with the [facility] (Dr. 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 Problem List: 1. Sickle cell anemia 2. Sickle cell crisis
--- NOTE | 2017-10-21 08:28 | PN- Housestaff ---
See Addendum Subjective Follow-up For: Sickle cell crisis Subjective: No overnight event. Patient was sleeping when I walked in. Review of Systems Constitutional: Reports: see HPI. Objective Last 24 Hrs of Vital Signs/I&O Vital Signs Date Time Temp Pulse Resp B/P B/P Pulse O2 O2 Flow FiO2 Mean Ox Delivery Rate 10/21 0650 99.5 96 20 138/76 93 10/21 0000 Nasal 1.0L Cannula 10/20 2125 99.4 95 20 153/75 94 10/20 1600 95 Nasal 1.0L Cannula 10/20 1429 Nasal 2.0L Cannula 10/20 1401 99.3 93 20 140/94 94 Nasal 2.0L Cannula 10/20 1028 106/64 Intake & Output 10/21 1600 10/21 0800 10/21 0000 Intake Total 300 200 Output Total Balance 300 200 Intake, Oral 300 200 Physical Exam General Appearance: Patient was sleeping Current Medications: Current Medications Sig/Dotty Start time Last Medication Dose Route Stop Time Status Admin Acetaminophen 650 MG Q6P PRN 10/19 0845 AC PO Diphenhydramine HCl 50 MG .STK-MED ONE 10/21 0002 DC PO 10/21 0003 Diphenhydramine HCl 50 MG .STK-MED ONE 10/20 1603 DC PO 10/20 1604 Diphenhydramine HCl See Dose Q12 10/19 1000 AC 10/20 Insts (1) TOP 2229 Diphenhydramine HCl 50 MG Q6P PRN 10/19 0845 AC 10/21 PO 0016 Enoxaparin Sodium 40 MG DAILY 10/19 1000 AC 10/19 SC 0951 Folic Acid 1 MG DAILY 10/19 1000 AC 10/20 PO 1027 Hydromorphone HCl 1 MG Q4P PRN 10/20 1000 AC 10/21 IV 0016 Hydromorphone HCl 1 MG Q6P PRN 10/19 0945 DC 10/20 IV 0739 Melatonin 10 MG AT BEDTIME 10/19 2200 AC 10/20 PO 2228 Metoprolol Succinate 50 MG DAILY 10/19 1000 AC 10/20 PO 1028 Multivitamins 1 TAB DAILY 10/19 1000 AC 10/20 Therapeutic PO 1028 Ondansetron HCl 4 MG Q6P PRN 10/19 0845 AC 10/21 IV 0029 Oxycodone/ 1 TAB Q6P PRN 10/19 0945 AC 10/20 Acetaminophen PO 1813 Polyethylene Glycol 17 GM DAILY NEEDED PRN 10/19 0830 AC PO Pregabalin 150 MG BID 10/19 1000 AC 10/20 PO 2228 Risperidone 1 MG QPM 10/19 2200 AC 10/20 PO 2228 Risperidone 0.5 MG QAM 10/19 1000 AC 10/20 PO 1028 Senna/Docusate Sodium 2 TAB DAILY NEEDED PRN 10/19 0830 AC PO Dose Instructions: (1)Diphenhydramine HCl: APPLY Last 24 Hrs of Lab/Lamin Results Last 24 Hrs of Labs/Mics: Laboratory Tests 10/21/17 0815: Sodium Pending, Potassium Pending, Chloride Pending, Carbon Dioxide Pending, Anion Gap Pending, BUN Pending, Creatinine Pending, BUN/Creatinine Ratio Pending , Total Bilirubin Pending, Direct Bilirubin Pending, AST Pending, ALT Pending, Alkaline Phosphatase Pending, Total Protein Pending, Albumin Pending, CBC w Diff Pending, WBC Pending, RBC Pending, Hgb Pending, Hct Pending, MCV Pending, MCH Pending, RDW Pending, Plt Count Pending, MPV Pending, PUBS MCHC Pending Assessment/Plan Assessment: Ms. Rooney is a 26-year-old female with reported history of CHF, CVA X2 (last one in 2014) seizure disorder, Hep C w/o dx of cirrhosis, bipolar disorder and sickle cell crises who comes in with CC of back pain and sickle cell crisis. ED Course: Vitals: 98.6, 103, 18, 114/77, 94% CBC: wbc 15.1, HB 7.9, HCT 23.7, PLT 319. Retic 12.9 T. OLAF 4.0, ast 88, alt 26, ALKP 88, Negative HCG Anemia and back pain likely due to sickle cell crisis: Pt had prolonged admission to 09/2017 for similar complaint and found to have MRSA bacteremia. During this admission, patient denied chest pain/SOB. She denies any chest pain or SOB at this time. Pt had complex course of Sickle Cell disease. Patient had hx of chronic exchange transfusion, likely iron-load contributing to heart failure, and previous treatment with Hydroxyurea, however she was not currently following up with heme/onc specialist or Sickle cell specialist. * Continue IVF-no 1/2 NS in hospital so giving NS at 75cc * O2 * Analgesia with Percocet and IV dilaudid * Benadryl PO 50mg q6 for pruritis * EKG showed NSR w/ no ST-T abnormalities for now. * Spine xray showed central depression of multiple vertebrae and low bone mineralization, consistent sequelae of sickle cell disease. No acute process. * Folic acid + multivitamin * Type and cross,transfuse if Hgb <6.5. Hgb on admission 7.9, now 7.3 on latest lab. * Monitor LDH/BILI/RETIC, Retic count 12.9 and T. loaf 4.0. * Heme/onc consult * Though anemic will con't pharmacologic ppx given her hypercoag state Leukocytosis: Unsure if this is reactive or not. Pt did seem to have some r.sided flank pain but no dysuria. During previous hospitalization she had MRSA bacteremia which was treated. Also had enlarged LN which was treated with Doxy. No obvious source of infection at this time. * UA -ve for UTI * UC no growth so far * hold off abx at this time Seizures: * Continue Lyrica 150mg BID CHF: * Con't Toprol XL 50mg Bipolar: * Con't Risperdal 0.5mg BID per Psych recommendation. Transamanitis: She does have mild AST elevation of 88 but nml ALT 26. Alk phos 88. During previous admission she was eval for possible gallbladder etiology of elevation of LFT and did have delayed HIDA. At that time thought to be 2/2 narcotics or chronic cholecystitis. Note pt also has hx of Hep C. * Monitor LFT * Consider US RUQ if enzymes elevate or pt has RUQ pain. FC Heart healthy diet Chem dvt ppx Problem List: 1. Sickle cell anemia 2. Sickle cell crisis Pain Ratin Pain Location: Patient was sleeping Pain Goal: Pain 7 or less Pain Plan: see AP Tomorrow's Labs & Rationales: CBC/BEP
--- NOTE | 2017-10-21 08:42 | Discharge Summary ---
Visit Information Visit Dates Admission Date: 10/19/17 Discharge Date: 10/21/2017 Hospital Course Course Attending Physician: Deidra Bravo MD Primary Care Physician: Patient Has No Primary Care Dr Hospital Course: Ms. Rooney is a 26-year-old female with reported history of CHF, CVA X2 (last one in 2014) seizure disorder, Hep C w/o dx of cirrhosis, bipolar disorder and sickle cell crises who comes in with CC of back pain and sickle cell crisis. ED Course: Vitals: 98.6, 103, 18, 114/77, 94% CBC: wbc 15.1, HB 7.9, HCT 23.7, PLT 319. Retic 12.9 T. OLAF 4.0, ast 88, alt 26, ALKP 88, Negative HCG Patient was subsequently admitted to General Medicine for the management of the following #Anemia and back pain likely due to sickle cell crisis: Pt had prolonged admission to 09/2017 for similar complaint and found to have MRSA bacteremia. During this admission, patient denied chest pain/SOB. She denied any chest pain or SOB at this admission. Patient had complex course of Sickle Cell disease, and history of chronic exchange transfusion, likely iron-load contributing to heart failure, and previous treatment with Hydroxyurea, however she was not currently following up with heme/onc specialist or Sickle cell specialist. With above history as well Hem/Onc consult recommendations, patient was managed with continuous IV gentle hydration with normal saline and encouraged oral fluid intake, supplemental Oxygen, analgesia for pain control including Percocet, Tylenol, and Dilaudid, benadryl for pruritis as needed, supplemental folic acid/ multivitamin. Patient's spinal x-ray showed central depression of multiple vertebrae and low bone mineralization, consistent sequelae of sickle cell disease without acute process. Patient's Hip x-ray showed slight heterogenous density from the femoral heads, more extensive on the left, consistent with the history of sickle cell disease. Contour of the femoral heads appears normal at present. Patient's Hgb reamined above 6.5 over the hospital stay without need for transfusion. Retic count 12.9 and T. olaf 4.0 on latest lab prior transfer to [facility]. Patient's pain was controlled by IV Dilaudid 1mg Q4 PRN, Percocet PO 1 tablet Q6 PRN, and Tylenol PO 650mg Q6 PRN prior transfer to [facility]. #Leukocytosis: The etiology remained unclear but likely due to reactive. Patient ahd some r.sided flank pain but no dysuria. During previous hospitalization she had MRSA bacteremia which was treated, and enlarged LN which was treated with Doxycycline. No obvious source of infection at this time. Patient's urinalysis had been negative for UTI, no growth on urine culture. Patient was monitored off antibiotics over the hospital stay and her WBC trended down to 10.9 prior discharge. #History of Seizures: Patient was continued on Lyrica 150mg BID #History of CHF: Patient was continued on Toprol XL 50mg #History of Bipolar: Patient was continued on Risperdal 0.5mg BID per Psych recommendation. #Transamanitis: Patient had mild AST elevation of 88 upon admission but ALT 26 within normal range. Alk phos 88. During previous admission she was eval for possible gallbladder etiology of elevation of LFT and did have delayed HIDA. At that time thought to be 2/2 narcotics or chronic cholecystitis. Patient also had history of Hep C. However, patient remained asymptomatic of RUQ pain or any GI symptoms, and remained afebrile. Patient's AST/ALT 52/28 on latest lab prior discharge. Resident addendum: As recommended by Dr. Mercado, have placed a call for [facility] for a transfer to [facility] to their sickle cell team. Patient was supposed to follow-up with Dr. Em at the sickle cell clinic but was not able to do that. Therefore it is believed that if patient can be followed by a sickle cell specialist Dr. Em at [facility], that would be best in her best interest. Regular Diet DVT Prophylaxis w/ ALPS Full Code Allergies: Coded Allergies: morphine (Severe, HIVES 10/19/17) peanut (Severe, HIVES 10/19/17) adhesive (Intermediate, RASH 10/19/17) iodine (Intermediate, SKIN BURNING 10/19/17) meperidine (From DEMEROL) (Intermediate, HIVES 10/19/17) potassium chloride (Intermediate, HIVES 10/19/17) shellfish derived (Intermediate, HIVES 10/19/17) Uncoded Allergies: FRUIT (VOMITING 08/16/17) Pertinent Lab Results: SERVICE DATE: 10/19/17- EXAM TYPE: RAD - XRY-LUMBOSACRAL SPINE AP & LAT IMPRESSION: 1. The study demonstrates central depression of multiple vertebrae and low bone mineralization, consistent sequelae of sickle cell disease. 2. There are no acute fractures or subluxations. SERVICE DATE: 10/20/17- EXAM TYPE: CAT - CT ABD & PELVIS W/O IV CONTRAS IMPRESSION: A cause for the patient's abdominal pain is not seen. Incidental note made of resolution of pericardial effusion, hepatomegaly, cholelithiasis without evidence of cholecystitis, chronic calcified infarcted spleen and bony changes with H-type vertebrae in the spine. SERVICE DATE: 10/22/17- EXAM TYPE: RAD - XRY-HIPS BILATERAL IMPRESSION: 1. There is slight heterogenous density from the femoral heads, more extensive on the left, consistent with the history of sickle cell disease. Contour of the femoral heads appears normal at present. 2. There are no acute fractures or subluxations. Laboratory Tests 10/22 0835 Chemistry Sodium (137 - 145 mmol/L) 142 Potassium (3.5 - 5.1 mmol/L) 4.0 Chloride (98 - 107 mmol/L) 103 Carbon Dioxide (22 - 30 mmol/L) 24 Anion Gap (5 - 16) 14 BUN (7 - 17 mg/dL) 9 Creatinine (0.5 - 1.0 mg/dL) 0.5 Estimated GFR (>60 ml/min) > 60 BUN/Creatinine Ratio (7 - 25 %) 18.0 Total Bilirubin (0.2 - 1.3 mg/dL) 2.6 H Direct Bilirubin (< 0.4 mg/dL) 0.6 H AST (14 - 36 U/L) 52 H ALT (9 - 52 U/L) 28 Alkaline Phosphatase (<127 U/L) 80 Total Protein (6.3 - 8.2 g/dL) 7.5 Albumin (3.5 - 5.0 g/dL) 4.1 Hematology CBC w Diff MAN DIFF ORDERED WBC (4.8 - 10.8 /CUMM) 10.9 H RBC (4.20 - 5.40 /CUMM) 2.49 L Hgb (12.0 - 16.0 G/DL) 7.5 L Hct (37 - 47 %) 22.1 L MCV (81.0 - 99.0 FL) 88.5 MCH (27.0 - 31.0 PG) 30.1 RDW (11.5 - 14.5 %) 25.6 H Plt Count (130 - 400 /CUMM) 328 MPV (7.4 - 10.4 FL) 8.8 Gran % (42.2 - 75.2 %) 43.1 Lymphocytes % (20.5 - 51.1 %) 37.0 Monocytes % (1.7 - 9.3 %) 10.0 H Eosinophils % (0 - 5 %) 9.1 H Basophils % (0.0 - 2.0 %) 0.8 Absolute Granulocytes (1.4 - 6.5 /CUMM) 4.7 Segmented Neutrophils (42.2 - 75.2 %) 45 Absolute Lymphocytes (1.2 - 3.4 /CUMM) 4.0 H Lymphocytes (20.5 - 51.1 %) 41 Monocytes (1.7 - 9.3 %) 8 Absolute Monocytes (0.10 - 0.60 /CUMM) 1.1 H Eosinophils (0 - 5.0 %) 6 H Absolute Eosinophils (0.0 - 0.7 /CUMM) 1.0 Absolute Basophils (0.0 - 0.2 /CUMM) 0.1 Nucleated RBCs (0.0 - 0.0 /100WBC) 2 H Platelet Estimate (ADEQUATE) ADEQUATE Polychromasia 2+ Hypochromic-Microcytic 2+ Poikilocytosis 4+ Anisocytosis 3+ Target Cells 1+ Ovalocytes 2+ Elliptocytes 1+ Schistocytes 1+ PUBS MCHC (33.0 - 37.0 G/DL) 34.0 Disposition Summary Disposition Principal Diagnosis: Anemia/back pain 2/2 sickle cell crisis Leukocytosis Seizures CHF Bipolar Transaminitis Additional Diagnosis: As above Discharge Disposition: home or self care Discharge Instructions General Discharge Information Code Status: Full Code Patient's Diet: Heart Healthy Diet Patient's Activity: As tolerate Follow-Up Instructions/Appts: - Please follow up with the [facility] (Dr. Em) to consider intermediate management: hydroxyurea and exchange transfusion. - Please follow up with your primary care physician within 1-2 week of discharge. Inform your primary care physician of this admission to [facility]. - Continue your current medications per discharge instructions. - Please watch for these problems: Fever, Chills, Nausea, Vomiting, Shortness of Breath, Productive Cough, Chest Pain/Discomfort, Abdominal Pain, Active Bleeding or Bloody urine/stool. Medications at Discharge Discharge Medications: Continue taking these medications: Multiple Vitamin (Multivitamins) 1 EACH TABLET 1 Tablet ORAL DAILY Comments: Last Taken: 10/22/17 Time: 1045 AM Metoprolol Succ XL (Toprol Xl) 50 MG TAB 1 Tablet ORAL DAILY Comments: Last Taken: 10/22/17 Time: 1045 AM Folic Acid (Folic Acid) 1 MG TABLET 1 Tablet ORAL DAILY Comments: Last Taken: 10/22/17 Time: 1045 AM diphenhydrAMINE HCl (Benadryl) 25 MG CAP 1 Capsule ORAL EVERY 8 HOURS NEEDED as needed for SKIN ITCHING Qty = 90 Instructions: . Comments: Last Taken: 10/22/17 Time: 1045 AM Risperidone (Risperdal) 0.5 MG TABLET 1 Tablet ORAL Every Morning Qty = 30 Instructions: . Comments: Last Taken: 10/22/17 Time: 1045 AM Docusate Sodium (Docusate Sodium) 100 MG CAPSULE 100 Milligram ORAL DAILY NEEDED as needed for CONSTIPATION Qty = 30 Instructions: . Comments: NOT GIVEN IN THE HOSPITAL Polyethylene Glycol 3350 (Miralax) 17 GRAM/DOSE POWDER 17 Gram ORAL DAILY as needed for CONSTIPATION Qty = 3 Instructions: . Comments: NOT GIVEN IN THE HOSPITAL Sennosides/Docusate Sodium (Senna Plus Tablet) 8.6 MG-50 MG TABLET 2 Tablet ORAL DAILY as needed for CONSTIPATION Qty = 60 Instructions: . Comments: NOT GIVEN IN THE HOSPITAL Diphenhydramine HCl/Zinc Acet (Itch Relief Cream) 2 %-0.1 % CREAM..G. 1 Application On the skin EVERY 6 HOURS NEEDED as needed for ITCHING Qty = 10 Instructions: . Comments: Last Taken: 10/22/17 Time: 1045 AM Emollient Combination No.92 (Lubriderm Daily Moisture) 177 ML LOTION 1 Application On the skin THREE TIMES DAILY as needed for DRY SKIN Qty = 3 Instructions: . Comments: NOT GIVEN IN THE HOSPITAL Cod Liver Oil/Zinc Oxide (Desitin Diaper Rash 40% Paste) 40 % PASTE..G. 1 Application On the skin TWICE DAILY Qty = 3 Instructions: . Comments: NOT GIVEN IN THE HOSPITAL Melatonin (Melatonin) 5 MG TABLET 10 Milligram ORAL AT BEDTIME Qty = 60 Instructions: . Comments: Last Taken: 10/21/17 Time: 1000 PM Oxycodone HCl/Acetaminophen (Percocet 5-325 MG Tablet) 5 MG-325 MG TABLET 1 Tablet ORAL THREE TIMES DAILY as needed for PAIN Qty = 10 Instructions: . Comments: Last Taken: 10/22/17 Time: 12 PM Pregabalin (Lyrica) 75 MG CAPSULE 150 Milligram ORAL TWICE DAILY Qty = 120 Instructions: . Comments: Last Taken: 10/22/17 Time: 11 AM Risperidone (Risperdal) 1 MG TABLET 1 Tablet ORAL Every night Qty = 30 Instructions: . Comments: Last Taken: 10/21/17 Time: 10 PM Start taking the following new medications: Hydromorphone (Hydromorphone HCl 2 MG/Ml Amp) 2 MG/ML AMPUL 1 Milligram INTRAVEN EVERY 4 HOURS NEEDED as needed for PAIN SCALE 7-10 ( SEVERE) Qty = 1 No Refills Comments: Last Taken: 10/22/17 Time: 1045 AM Copies To: Unknown
[2017-10-21 09:26] LABS: ABSOLUTE BASOPHIL COUNT 0 /CUMM (0.0-0.2); ABSOLUTE EOSINOPHIL COUNT 0.8 /CUMM (0.0-0.7); ABSOLUTE GRANULOCYTE CT 8.8 /CUMM (1.4-6.5); ABSOLUTE LYMPH COUNT 3.4 /CUMM (1.2-3.4); BASOPHIL % 0.3 % (0.0-2.0); EOSINOPHIL % 5.6 % (0-5); GRANULOCYTE % 62.6 % (42.2-75.2); MEAN CORPUSCULAR HGB 29.9 PG (27.0-31.0); MEAN CORPUSCULAR HGB CONC 34.8 G/DL (33.0-37.0); MEAN CORPUSCULAR VOLUME 85.9 FL (81.0-99.0); PLATELET COUNT 312 /CUMM (130-400); RBC DISTRIBUTION WIDTH 23.8 % (11.5-14.5); RED BLOOD CELL CT 2.45 /CUMM (4.20-5.40)
[2017-10-21 14:12] VITALS: BP 100/70
[2017-10-21 22:42] VITALS: BP 130/82
[2017-10-21 23:43] VITALS: BP 110/64
[2017-10-22 06:28] VITALS: BP 110/60
--- NOTE | 2017-10-22 07:46 | PN- Housestaff ---
GrahamLivia 10/22/17 0738: Subjective Follow-up For: Sickle cell crisis Subjective: No overnight event. Patient was seen by me and Dr. Rai together. Patient still c/o pain but felt tolerable this morning after medication. Patient stated that her IV has blown so she had to drink water for hydration. Patient stated that she was using the incentive spirometry regularly. Patient c'o on/off bilateral hip/thigh pain overnight, and the back pain had been ongoing. Patient c'o some drainage yesterday from her skin lesion on the left upper chest. Review of Systems Constitutional: Reports: see HPI. Objective Last 24 Hrs of Vital Signs/I&O Vital Signs Date Time Temp Pulse Resp B/P B/P Pulse O2 O2 Flow FiO2 Mean Ox Delivery Rate 10/22 0628 98.3 94 20 110/60 96 Nasal 2.0L Cannula 10/22 0000 93 Nasal 1.0L Cannula 10/21 2343 99.4 96 20 110/64 93 10/21 2242 100.1 100 20 130/82 92 Nasal 2.0L Cannula 10/21 1412 98.4 93 18 100/70 94 Room Air 10/21 0937 92 130/70 Intake & Output 10/22 0800 10/22 0000 10/21 1600 Intake Total 240 480 780 Output Total 400 2000 600 Balance -160 -1520 180 Intake, IV 60 Intake, Oral 240 480 720 Output, Urine 400 2000 600 Physical Exam General Appearance: Alert, Oriented X3, Cooperative, Mild Distress Skin: Left upper chest lesion, dry for now. Cardiovascular: Regular Rate Neurological: Normal Speech Extremities: No Edema, Normal Pulses Current Medications: Current Medications Sig/Dotty Start time Last Medication Dose Route Stop Time Status Admin Acetaminophen 650 MG Q6P PRN 10/19 0845 AC PO Diphenhydramine HCl See Dose Q12 10/19 1000 AC 10/21 Insts (1) TOP 2203 Diphenhydramine HCl 50 MG Q6P PRN 10/19 0845 AC 10/22 PO 0136 Enoxaparin Sodium 40 MG DAILY 10/19 1000 AC 10/19 SC 0951 Folic Acid 1 MG DAILY 10/19 999 AC 10/21 PO 0937 Hydromorphone HCl 1 MG Q4P PRN 10/20 1000 AC 10/22 IV 0613 Melatonin 10 MG AT BEDTIME 10/19 2199 AC 10/21 PO 220 Metoprolol Succinate 50 MG DAILY 10/19 999 AC 10/21 PO 37 Multivitamins 1 TAB DAILY 10/19 999 AC 10/21 Therapeutic PO 37 Ondansetron HCl 4 MG Q6P PRN 10/19 944 AC 10/21 IV 0029 Oxycodone/ 1 TAB Q6P PRN 10/19 0845 AC 10/22 Acetaminophen PO 0530 Polyethylene Glycol 17 GM DAILY NEEDED PRN 10/19 829 AC PO Pregabalin 150 MG BID 10/19 999 AC 10/21 PO 2202 Risperidone 0.5 MG QPM 10/21 2199 AC 10/21 PO 2202 Risperidone 1 MG QPM 10/19 2199 DC 10/20 PO 222 Risperidone 0.5 MG QAM 10/19 999 AC 10/21 PO 37 Senna/Docusate Sodium 2 TAB DAILY NEEDED PRN 10/19 829 AC PO Dose Instructions: (1)Diphenhydramine HCl: APPLY Last 24 Hrs of Lab/Lamin Results Last 24 Hrs of Labs/Mics: Laboratory Tests 10/21/17 0815: Anion Gap 12, Estimated GFR > 60, BUN/Creatinine Ratio 14.0, Total Bilirubin 3.9 H, Direct Bilirubin 0.8 H, AST 57 H, ALT 26, Alkaline Phosphatase 75, Total Protein 7.5, Albumin 4.0, CBC w Diff MAN DIFF ORDERED, RBC 2.45 L, MCV 85.9, MCH 29.9, RDW 23.8 H, MPV 9.0, Gran % 62.6, Lymphocytes % 24.2, Monocytes % 7.3 , Eosinophils % 5.6 H, Basophils % 0.3, Absolute Granulocytes 8.8 H, Segmented Neutrophils 61, Band Neutrophils 1, Absolute Lymphocytes 3.4, Lymphocytes 23, Monocytes 7, Absolute Monocytes 1.0 H, Eosinophils 5, Absolute Eosinophils 0.8, Basophils 1, Absolute Basophils 0, Metamyelocytes 1, Myelocytes 1 H, Nucleated RBCs 7 H, Platelet Estimate ADEQUATE, Polychromasia 2+, Hypochromic-Microcytic 3+, Poikilocytosis 3+, Anisocytosis 3+, Target Cells 1+, Ovalocytes 1+, Elliptocytes 1+, Schistocytes 1+, PUBS MCHC 34.8 Assessment/Plan Assessment: Ms. Rooney is a 26-year-old female with reported history of CHF, CVA X2 (last one in 2014) seizure disorder, Hep C w/o dx of cirrhosis, bipolar disorder and sickle cell crises who comes in with CC of back pain and sickle cell crisis. ED Course: Vitals: 98.6, 103, 18, 114/77, 94% CBC: wbc 15.1, HB 7.9, HCT 23.7, PLT 319. Retic 12.9 T. OLAF 4.0, ast 88, alt 26, ALKP 88, Negative HCG Anemia and back pain likely due to sickle cell crisis: Pt had prolonged admission to 09/2017 for similar complaint and found to have MRSA bacteremia. During this admission, patient denied chest pain/SOB. She denies any chest pain or SOB at this time. Pt had complex course of Sickle Cell disease. Patient had hx of chronic exchange transfusion, likely iron-load contributing to heart failure, and previous treatment with Hydroxyurea, however she was not currently following up with heme/onc specialist or Sickle cell specialist. * Continue IVF-no 1/2 NS in hospital so giving NS at 75cc, however since patient 's IV has blown, will encourage PO water intake. * O2 as needed * Analgesia with Percocet PO Q6PRN, Tylenol 650mg Q6P, and IV dilaudid 1mg q4PRN (not given for now due to IV access failed). Would transit patient to PO pain meds for now. Patient is also a potential transfer to [facility] as she should be followed at [facility] cell [facility]. * Benadryl PO 50mg q6 for pruritis * EKG showed NSR w/ no ST-T abnormalities for now. * Spine xray showed central depression of multiple vertebrae and low bone mineralization, consistent sequelae of sickle cell disease. No acute process. * Folic acid + multivitamin * Type and cross,transfuse if Hgb <6.5. Hgb on admission 7.9, now 7.3 on latest lab. * Monitor LDH/BILI/RETIC, Retic count 12.9 and T. olaf 4.0. * Heme/onc consult appreciated * Though anemic will con't pharmacologic ppx given her hypercoag state Leukocytosis: Unsure if this is reactive or not. Pt did seem to have some r.sided flank pain but no dysuria. During previous hospitalization she had MRSA bacteremia which was treated. Also had enlarged LN which was treated with Doxy. No obvious source of infection at this time. * UA -ve for UTI * UC no growth so far * hold off abx at this time Seizures: * Continue Lyrica 150mg BID CHF: * Con't Toprol XL 50mg Bipolar: * Con't Risperdal 0.5mg BID per Psych recommendation. Transamanitis: She does have mild AST elevation of 88 but nml ALT 26. Alk phos 88. During previous admission she was eval for possible gallbladder etiology of elevation of LFT and did have delayed HIDA. At that time thought to be 2/2 narcotics or chronic cholecystitis. Note pt also has hx of Hep C. * Monitor LFT * Consider US RUQ if enzymes elevate or pt has RUQ pain. FC Regular DIet Chem dvt ppx Problem List: 1. Sickle cell anemia 2. Sickle cell crisis Pain Ratin Pain Location: back pain hip pain arm pain Pain Goal: Pain 7 or less Pain Plan: see AP Tomorrow's Labs & Rationales: CBC/BEP Sharon Hernandez MD 10/22/17 1132: Attending MD Review Statement Attending Statement Attending MD Statement: examined this patient, discuss w/resident/PA/EVP STRATEGY, agreed w/resident/PA/EVP STRATEGY, reviewed EMR data (avail), discussed with nursing, discussed with case mgmt, reviewed images, amended to note Attending Assessment/Plan: Patient seen and examined, still complain of excruciating pain. Still requiring IV Dilaudid. Hip x-ray was done and it is negative for any evidence of any avascular necrosis. Vital Signs Date Time Temp Pulse Resp B/P B/P Pulse O2 O2 Flow FiO2 Mean Ox Delivery Rate 10/22 1049 110/60 10/22 0628 98.3 94 20 110/60 96 Nasal 2.0L Cannula 10/22 0000 93 Nasal 1.0L Cannula 10/21 2343 99.4 96 20 110/64 93 10/21 2242 100.1 100 20 130/82 92 Nasal 2.0L Cannula 10/21 1412 98.4 93 18 100/70 94 Room Air on exam; aox3, nad. cv; s1, s2, rrr resp; clear abd; soft, nt, bs+ ext; no edema. Laboratory Tests 10/22 0835 Chemistry Sodium (137 - 145 mmol/L) 142 Potassium (3.5 - 5.1 mmol/L) 4.0 Chloride (98 - 107 mmol/L) 103 Carbon Dioxide (22 - 30 mmol/L) 24 Anion Gap (5 - 16) 14 BUN (7 - 17 mg/dL) 9 Creatinine (0.5 - 1.0 mg/dL) 0.5 Estimated GFR (>60 ml/min) > 60 BUN/Creatinine Ratio (7 - 25 %) 18.0 Total Bilirubin (0.2 - 1.3 mg/dL) 2.6 H Direct Bilirubin (< 0.4 mg/dL) 0.6 H AST (14 - 36 U/L) 52 H ALT (9 - 52 U/L) 28 Alkaline Phosphatase (<127 U/L) 80 Total Protein (6.3 - 8.2 g/dL) 7.5 Albumin (3.5 - 5.0 g/dL) 4.1 Hematology CBC w Diff MAN DIFF ORDERED WBC (4.8 - 10.8 /CUMM) 10.9 H RBC (4.20 - 5.40 /CUMM) 2.49 L Hgb (12.0 - 16.0 G/DL) 7.5 L Hct (37 - 47 %) 22.1 L MCV (81.0 - 99.0 FL) 88.5 MCH (27.0 - 31.0 PG) 30.1 RDW (11.5 - 14.5 %) 25.6 H Plt Count (130 - 400 /CUMM) 328 MPV (7.4 - 10.4 FL) 8.8 Gran % (42.2 - 75.2 %) 43.1 Lymphocytes % (20.5 - 51.1 %) 37.0 Monocytes % (1.7 - 9.3 %) 10.0 H Eosinophils % (0 - 5 %) 9.1 H Basophils % (0.0 - 2.0 %) 0.8 Absolute Granulocytes (1.4 - 6.5 /CUMM) 4.7 Segmented Neutrophils (42.2 - 75.2 %) 45 Absolute Lymphocytes (1.2 - 3.4 /CUMM) 4.0 H Lymphocytes (20.5 - 51.1 %) 41 Monocytes (1.7 - 9.3 %) 8 Absolute Monocytes (0.10 - 0.60 /CUMM) 1.1 H Eosinophils (0 - 5.0 %) 6 H Absolute Eosinophils (0.0 - 0.7 /CUMM) 1.0 Absolute Basophils (0.0 - 0.2 /CUMM) 0.1 Nucleated RBCs (0.0 - 0.0 /100WBC) 2 H Platelet Estimate (ADEQUATE) ADEQUATE Polychromasia 2+ Hypochromic-Microcytic 2+ Poikilocytosis 4+ Anisocytosis 3+ Target Cells 1+ Ovalocytes 2+ Elliptocytes 1+ Schistocytes 1+ PUBS MCHC (33.0 - 37.0 G/DL) 34.0 A/P; 27 y/o F with pmh sig for sickkle cell disease since age of 5 months, CVA X2 (last one in 2014) seizure disorder, Hep C w/o dx of cirrhosis, bipolar disorder and sickle cell crises admitted with sickle cell crisis and generalized pain. All imaging studies reviewed and no organic abdominal pathology was found other than her chronic splenic infarct. There is no avascular necrosis at the hip also. Patient currently stays on IV Dilaudid. As recommended by Dr. Mercado, I have placed a call for [facility] for a possible transfer to [facility] to their sickle cell team. Patient was supposed to follow-up with Dr. Em at the sickle cell clinic but was not able to do that. Therefore it is believed that if patient can be followed by a sickle cell specialist at [facility], that would be best in her best interest. I'm waiting to hear back from them. In the meantime we'll continue the current management. DVT px: lovenox.
--- NOTE | 2017-10-22 08:09 | PN- Hematology ---
Subjective Subjective: She continues to have diffuse pain with worse pain in thigh and shoulders. Breathing is about the same. She does have some nose bleeding. Review of Systems Constitutional: Denies: chills, fever. Cardiovascular: Reports: chest pain. Gastrointestinal: Reports: abdominal pain. Musculoskeletal: Reports: back pain, joint pain, muscle pain. Hematologic/Endocrine: Reports: bleeding (nose). All Other Systems: Reviewed and Negative Objective Vital Signs and I&Os Vital Signs Date Time Temp Pulse Resp B/P B/P Pulse O2 O2 Flow FiO2 Mean Ox Delivery Rate 10/22 0628 98.3 94 20 110/60 96 Nasal 2.0L Cannula 10/22 0000 93 Nasal 1.0L Cannula 10/21 2343 99.4 96 20 110/64 93 10/21 2242 100.1 100 20 130/82 92 Nasal 2.0L Cannula 10/21 1412 98.4 93 18 100/70 94 Room Air 10/21 0937 92 130/70 Intake & Output 10/22 1600 10/22 0800 10/22 0000 10/21 1600 10/21 0800 10/21 0000 Intake Total 240 480 780 300 200 Output Total 400 2000 600 Balance -160 -1520 180 300 200 Intake, IV 60 Intake, Oral 240 480 720 300 200 Output, Urine 400 2000 600 Physical Exam: General Appearance: no apparent distress, comfortable, thin Respiratory: chest non-tender, no respiratory distress, quiet respiration Cardiovascular: regular rate/rhythm Abdomen: normal bowel sounds, soft Extremities: no edema, mild tenderness to palpation Skin: left anterior chest port area is without tenderness or drainage Neurologic/Psychiatric: oriented x 3, alert Current Medications: Current Medications Sig/Dotty Start time Last Medication Dose Route Stop Time Status Admin Acetaminophen 650 MG Q6P PRN 10/19 944 AC PO Diphenhydramine HCl See Dose Q12 10/19 999 AC 10/21 Insts (1) TOP 2203 Diphenhydramine HCl 50 MG Q6P PRN 10/19 0845 AC 10/22 PO 0136 Enoxaparin Sodium 40 MG DAILY 10/19 1000 AC 10/19 SC 0951 Folic Acid 1 MG DAILY 10/19 999 AC 10/21 PO 0937 Hydromorphone HCl 1 MG Q4P PRN 10/20 1000 AC 10/22 IV 0613 Melatonin 10 MG AT BEDTIME 10/19 2199 AC 10/21 PO 2202 Metoprolol Succinate 50 MG DAILY 10/19 999 AC 10/21 PO 37 Multivitamins 1 TAB DAILY 10/19 999 AC 10/21 Therapeutic PO 37 Ondansetron HCl 4 MG Q6P PRN 10/19 944 AC 10/21 IV 0029 Oxycodone/ 1 TAB Q6P PRN 10/19 944 AC 10/22 Acetaminophen PO 0530 Polyethylene Glycol 17 GM DAILY NEEDED PRN 10/19 829 AC PO Pregabalin 150 MG BID 10/19 999 AC 10/21 PO 2202 Risperidone 0.5 MG QPM 10/21 2199 AC 10/21 PO 2202 Risperidone 1 MG QPM 10/19 220 DC 10/20 PO 222 Risperidone 0.5 MG QAM 10/19 999 AC 10/21 PO 936 Senna/Docusate Sodium 2 TAB DAILY NEEDED PRN 10/19 829 AC PO Dose Instructions: (1)Diphenhydramine HCl: APPLY Results Last 24 Hours of Lab Results: Laboratory Tests 10/21 814 Chemistry Sodium (137 - 145 mmol/L) 141 Potassium (3.5 - 5.1 mmol/L) 4.4 Chloride (98 - 107 mmol/L) 106 Carbon Dioxide (22 - 30 mmol/L) 24 Anion Gap (5 - 16) 12 BUN (7 - 17 mg/dL) 7 Creatinine (0.5 - 1.0 mg/dL) 0.5 Estimated GFR (>60 ml/min) > 60 BUN/Creatinine Ratio (7 - 25 %) 14.0 Total Bilirubin (0.2 - 1.3 mg/dL) 3.9 H Direct Bilirubin (< 0.4 mg/dL) 0.8 H AST (14 - 36 U/L) 57 H ALT (9 - 52 U/L) 26 Alkaline Phosphatase (<127 U/L) 75 Total Protein (6.3 - 8.2 g/dL) 7.5 Albumin (3.5 - 5.0 g/dL) 4.0 Hematology CBC w Diff MAN DIFF ORDERED WBC (4.8 - 10.8 /CUMM) 14.0 H RBC (4.20 - 5.40 /CUMM) 2.45 L Hgb (12.0 - 16.0 G/DL) 7.3 *L Hct (37 - 47 %) 21.0 L MCV (81.0 - 99.0 FL) 85.9 MCH (27.0 - 31.0 PG) 29.9 RDW (11.5 - 14.5 %) 23.8 H Plt Count (130 - 400 /CUMM) 312 MPV (7.4 - 10.4 FL) 9.0 Gran % (42.2 - 75.2 %) 62.6 Lymphocytes % (20.5 - 51.1 %) 24.2 Monocytes % (1.7 - 9.3 %) 7.3 Eosinophils % (0 - 5 %) 5.6 H Basophils % (0.0 - 2.0 %) 0.3 Absolute Granulocytes (1.4 - 6.5 /CUMM) 8.8 H Segmented Neutrophils (42.2 - 75.2 %) 61 Band Neutrophils (0.0 - 5.0 %) 1 Absolute Lymphocytes (1.2 - 3.4 /CUMM) 3.4 Lymphocytes (20.5 - 51.1 %) 23 Monocytes (1.7 - 9.3 %) 7 Absolute Monocytes (0.10 - 0.60 /CUMM) 1.0 H Eosinophils (0 - 5.0 %) 5 Absolute Eosinophils (0.0 - 0.7 /CUMM) 0.8 Basophils (0.0 - 2.0 %) 1 Absolute Basophils (0.0 - 0.2 /CUMM) 0 Metamyelocytes (0.0 - 1.0 %) 1 Myelocytes (0 - 0 %) 1 H Nucleated RBCs (0.0 - 0.0 /100WBC) 7 H Platelet Estimate (ADEQUATE) ADEQUATE Polychromasia 2+ Hypochromic-Microcytic 3+ Poikilocytosis 3+ Anisocytosis 3+ Target Cells 1+ Ovalocytes 1+ Elliptocytes 1+ Schistocytes 1+ PUBS MCHC (33.0 - 37.0 G/DL) 34.8 Assessment/Plan Assessment/Recommendations: Ms. Rooney is a 27-year-old female with sickle cell disease complicated by CHF and CVA, bipolar disorder, hepatitis C infection, and seizure disorder who presented with generalized pain concerning for sickle cell crisis. On presentation, her hemoglobin and hematocrit were 7.9 and 23.7 respectively. H/H is stable along with bilirubin. Pain is worse in shoulder and thigh. She may need x-ray imaging of the femur to evaluate for AVN. She should continue with supportive care for now. She will need to follow up with the [facility] to discuss exchange transfusion and hydroxyurea. Recommendations: Sickle cell crisis: -Continue IVF -Continue Pain management as per primary -Encourage incentive spirometry usage -Continue folic acid daily -Limit transfusion, consider transfusion if hgb <6.5 (below baseline) or if symptomatic -Monitor CBC, LFT, LDH, Retic count daily -Obtain X-ray hips and femur for AVN -DVT prophylaxis -supplemental oxygen as needed, add humidifier -Outpatient with the [facility] (Dr. Em) to consider terminal carman management: hydroxyurea and exchange transfusion Please call [phone] with any questions or concerns. Problem List: 1. Sickle cell anemia 2. Sickle cell crisis
[2017-10-22 09:32] LABS: ABSOLUTE BASOPHIL COUNT 0.1 /CUMM (0.0-0.2); ABSOLUTE GRANULOCYTE CT 4.7 /CUMM (1.4-6.5); ABSOLUTE MONOCYTE COUNT 1.1 /CUMM (0.10-0.60); BASOPHIL % 0.8 % (0.0-2.0); EOSINOPHIL % 9.1 % (0-5); GRANULOCYTE % 43.1 % (42.2-75.2); HEMATOCRIT 22.1 % (37-47); MEAN CORPUSCULAR HGB 30.1 PG (27.0-31.0); MEAN CORPUSCULAR VOLUME 88.5 FL (81.0-99.0); MEAN PLATELET VOLUME 8.8 FL (7.4-10.4); PLATELET COUNT 328 /CUMM (130-400); RBC DISTRIBUTION WIDTH 25.6 % (11.5-14.5); RED BLOOD CELL CT 2.49 /CUMM (4.20-5.40); WHITE BLOOD CELL COUNT 10.9 /CUMM (4.8-10.8)
--- NOTE | 2017-10-22 10:46 | RADIOLOGY REPORT ---
EXAMINATION: BILATERAL HIPS CLINICAL INFORMATION: Sickle cell crisis with on and off hip/thigh pain bilaterally. COMPARISON: CT scan of the abdomen and pelvis 10/20/2017. TECHNIQUE: AP supine neutral and frog-leg lateral views of both hips are provided. FINDINGS: There is normal alignment of the hip joints bilaterally. The contour of the femoral heads is normal, but there is slightly heterogenous density from both femoral heads, more extensive on the left. The joint spaces are maintained. No fractures are demonstrated. The visualized sacroiliac joints appear normal. The soft tissues are unremarkable. IMPRESSION: 1. There is slight heterogenous density from the femoral heads, more extensive on the left, consistent with the history of sickle cell disease. Contour of the femoral heads appears normal at present. 2. There are no acute fractures or subluxations.
[2017-10-22] MEDS ORDERED: HYDROMORPHO2 MG/1 M3 IV (12:08)
[2017-10-22 13:02] VITALS: BP 110/60
== END 2017-10-22 14:00 | disposition short-term general hospital (02) | DRG 662 ==
LOC: ERH 04:29 → 2NA 07:04 → ERHI 07:04 → ENRESERV 12:43 → ENTRNSPT 13:39 → EDTRNSPTSTS 13:52 → EDTRNSPT 13:52 → 2NA 14:00 → CMPTRNSPT 14:12 → 2NA 10-22 09:56 → ENPENDDIS 10-22 12:27 → 2NA 10-22 14:00
PROVIDERS: Emergency Medicine; Student in an Organized Health Care Education/Training Program
DX: D57.00 Hb-SS disease with crisis, unspecified (principal); F12.129 Cannabis abuse with intoxication, unspecified; I50.9 Heart failure, unspecified; G40.909 Epilepsy, unspecified, not intractable, without status epilepticus; F31.9 Bipolar disorder, unspecified; Z86.73 Personal history of transient ischemic attack (TIA), and cerebral infarction without residual deficits
CPT/HCPCS: 2NAP; 36415; 72100; 73523; 74176; 81001; 82436; 87086; 90714; 93005; 93010; 96361; 96374; 96375; 96376; J1200; J1650; J2405; J3490